=== PATIENT | male | born 1995 | race Caucasian/White ===

== ENCOUNTER 2016-09-15 17:18 | Emergency (ER) | payer OTHER ==
[~2016-09-15] VITALS: Ht 172.7 cm; Wt 78.2 kg
[~2016-09-15 17:18] MED LIST: ATOM25CA PO; AZIT-57 PO; MIRT15TA PO; MIRT15TA2 PO
[2016-09-15 17:20] VITALS: TEMP 37.1; Ht 172.7 cm; Wt 78.2 kg
[2016-09-15] MEDS ORDERED: DOXYCYCLINE HYCLATE 100 MG CAP PO ONE (17:45)
--- NOTE | 2016-09-15 18:20 | EMERGENCY ROOM VISIT NOTE ---
ED Visit Note First contact with patient: 17:22 CHIEF COMPLAINT: Tick bite HISTORY OF PRESENT ILLNESS: This 21-year-old male patient presents to the emergency department accompanied by his girlfriend complaining of a tick bite to the left breast. The patient believes that the tick has been in place for greater than 2 days. They have not attempted to remove the tick at home. They complain of 1/10 pain in the area of the tick bite. The patient denies any redness, swelling or drainage from the area. They deny any rashes, fevers or joint pain. REVIEW OF SYSTEMS: A review of systems was performed with positives and pertinent negatives listed in the history of present illness. All other systems were reviewed and are negative. ALLERGIES: Penicillins MEDICATIONS: No chronic medications PMH: No significant past medical history. SOCIAL HISTORY: The patient lives locally with family. Nonsmoker. PHYSICAL EXAM: VITALS: Vitals are noted on the nurse's note and reviewed by myself. Vital signs stable. GENERAL: This is a 21-year-old male, in no acute distress, nondiaphoretic, well- developed well-nourished. SKIN: There is a tick embedded in the left breast just inferior to the nipple. There is no surrounding erythema or swelling. There are no rashes. EMERGENCY DEPARTMENT COURSE: The patient was seen and examined as above. Using a tick twister, the tick was easily removed. Lyme prophylaxis was indicated and the patient was given a one-time dose of 200 mg doxycycline. Conservative care measures were discussed with the patient. The patient was discharged home in good condition. DIAGNOSIS: Tick bite Problem List Medical Problems: (1) Bronchitis Status: Resolved Surgical Problems: (1) No significant past surgical history Status: Chronic Current/Historical Medications No Active Prescriptions or Reported Meds Allergies Coded Allergies: Amoxicillin (Verified Allergy, Intermediate, HIVES, 09/15/16) Penicillins (Verified Adverse Reaction, Unknown, GI SYMPTOMS, 09/15/16) Vital Signs Date Time Temp Pulse Resp B/P Pulse Ox O2 Delivery O2 Flow Rate FiO2 09/15/16 17:20 37.1 71 18 132/71 100 Room Air Medications Administered Medications (Trade) Dose Ordered Sig/Cyndee Route Start Time Stop Time Status Last Admin Dose Admin Doxycycline Hyclate (Vibramycin Cap) 200 mg ONE ONCE PO 09/15/16 17:45 09/15/16 17:46 DC 09/15/16 17:55 200 MG Departure Information Impression Primary Impression: Tick bite Dispostion Home / Self-Care Condition GOOD Prescriptions No Active Prescriptions or Reported Meds Referrals Lashae Moreira M.D. (PCP) Patient Instructions My [facility] Additional Instructions Follow-up with your primary care provider as needed. Proper wound care is essential for adequate wound healing and infection prevention. You can shower and clean the wound with soap and water. Do not scour over the wound, pat dry with a towel. Do not submerse the wound (i.e. bathe or dish wash) until the wound has fully healed. You can use an antibiotic ointment with a dressing over the wound for the next 3-4 days. After this time you may leave the wound dry and open to the air. Return to the emergency department with any fevers, rashes, joint aches or any other new/concerning symptoms. Problem Qualifiers Primary Impression: Tick bite Encounter type: initial encounter Qualified Codes: W57.XXXA - Bitten or stung by nonvenomous insect and other nonvenomous arthropods, initial encounter
[2016-09-15 18:39] VITALS: BP 129/73; PULSE 82; O2SAT 100
== END 2016-09-15 18:40 | disposition home or self-care (01) ==
LOC: C.EDB 17:20 → C.EDD 18:40
DX: S20.162A Insect bite (nonvenomous) of breast, left breast, initial encounter (principal); W57.XXXA Bitten or stung by nonvenomous insect and other nonvenomous arthropods, initial encounter; Z88.0 Allergy status to penicillin; Z88.1 Allergy status to other antibiotic agents

== ENCOUNTER 2017-03-30 22:52 | Emergency (ER) | payer OTHER ==
[~2017-03-30] VITALS: Ht 175.3 cm; Wt 73.0 kg
[2017-03-30 23:00] VITALS: TEMP 37; Ht 175.3 cm; Wt 73.0 kg
[2017-03-30] MEDS ORDERED: SODIUM CHLORIDE 0.9% 1000ML 1,000 ML IV STA (23:08)
[2017-03-30] MEDS ORDERED: KETOROLAC TROMETHAMINE 30 MG/ML VIAL IV STA (23:08)
[2017-03-30 23:12] VITALS: O2SAT 97
[2017-03-30 23:16] LABS: BASO % 0.2 %; BASO ABS # 0.02 K/uL (0-0.2); COMPLETE YES; EOS % 1.5 %; HEMATOCRIT 41.4 % (42-52); IG% 0.2 %; LYMPH % 30.7 %; LYMPH ABS # 2.93 K/uL (1.2-3.4); MEAN CELL VOLUME 91.6 fL (80-100); MEAN CORPUSCULAR HEMOGLOBIN 31.9 pg (25-34); MEAN CORPUSCULAR HGB CONC 34.8 g/dl (32-36); MEAN PLATELET VOLUME 10.2 fL (7.4-10.4); MONO % 10.9 %; NEUT % 56.5 %; PLATELET COUNT 218 K/uL (130-400); RED BLOOD COUNT 4.52 M/uL (4.7-6.1); WHITE BLOOD COUNT 9.55 K/uL (4.8-10.8)
[2017-03-30 23:34] LABS: ALT/SGPT 18 U/L (12-78); AST/SGOT 15 U/L (15-37); BLOOD UREA NITROGEN 5 mg/dl (7-18); BUN/CREATININE RATIO 5.7 (10-20); CALCIUM 8.5 mg/dl (8.5-10.1); CARBON DIOXIDE 21 mmol/L (21-32); CHLORIDE 110 mmol/L (98-107); CREATININE 0.81 mg/dl (0.60-1.40); GLUCOSE 110 mg/dl (70-99); POTASSIUM 2.8 mmol/L (3.5-5.1); SODIUM 145 mmol/L (136-145)
[2017-03-30] MEDS ORDERED: POTASSIUM CHLORIDE 10 MEQ TABCR PO STA (23:36)
[2017-03-30 23:38] LABS: POINT OF CARE TROPONIN I < 0.030 ng/ml (0-0.045)
[2017-03-30 23:39] LABS: ALKALINE PHOSPHATASE 109 U/L (45-117)
[2017-03-30 23:43] LABS: MAGNESIUM 1.9 mg/dl (1.8-2.4)
[2017-03-31] MEDS ORDERED: POTASSIUM CHLORIDE 10 MEQ TABCR PO STA (01:41)
[2017-03-31 01:55] VITALS: BP 128/70; PULSE 78; O2SAT 98
--- NOTE | 2017-03-31 06:09 | EMERGENCY ROOM VISIT NOTE ---
History First contact with patient: 22:55 Chief Complaint: CHEST PAIN Stated Complaint: Chest pain/Shortness of breath Nursing Triage Summary: patient states around 1900 he developed chest pain to center of chest described as pressure and states pain remained until around 2229 when EMS gave patient aspirin. patient states pain has completely resolved . hx of anxiety . History of Present Illness The patient is a 21 year old male who presents to the Emergency Room with complaints of chest pain since 7 PM while getting a tattoo. Pain currently pain -free. He was given aspirin by EMS. Patient states he is quite anxious over the tattoo. Patient describes the pain as aching, ranging in severity was 4-10 but now has resolved. Patient denies dyspnea, fever, chills, cough, congestion , injury to the area, leg pain or swelling, recent travel, family history of heart disease or blood clots. He does not smoke. Patient did admit to having a few alcoholic beverages tonight. Review of Systems See HPI for pertinent positives & negatives. A total of 10 systems reviewed and were otherwise negative. Past Medical/Surgical History Medical Problems: (1) Bronchitis Surgical Problems: (1) No significant past surgical history Family History No pertinent family history Social History Smoking Status: Never Smoker Alcohol Use: none Drug Use: none Marital Status: single Housing Status: lives with family Occupation Status: employed Current/Historical Medications No Active Prescriptions or Reported Meds Physical Exam Vital Signs Date Time Temp Pulse Resp B/P (MAP) Pulse Ox O2 Delivery O2 Flow Rate FiO2 03/31/17 01:55 78 20 128/70 98 03/31/17 01:35 78 20 110/61 98 Room Air 03/31/17 00:32 91 20 104/46 99 Room Air 03/30/17 23:12 97 Room Air 03/30/17 23:12 97 Room Air 03/30/17 23:00 97 Room Air 03/30/17 23:00 37.0 117 20 155/ 97 Room Air 03/30/17 22:57 114 Physical Exam VITALS: Vitals are noted on the nurse's note and reviewed by myself. Vital signs stable. GENERAL: Pleasant male, in no acute distress, nondiaphoretic, well-developed well-nourished. SKIN: The skin was without rashes, erythema, edema, or bruising. There is no tenting of the skin. Capillary reflex less than 2 seconds. HEAD: Normocephalic atraumatic. EARS: External auditory canals clear, tympanic membranes pearly swartz without erythema or effusion bilaterally. EYES: Pupils equal round and reactive to light and accommodation. Conjunctivae without injection, sclerae without icterus. Extraocular movements intact. NOSE: Patent, turbinates without inflammation or discharge. MOUTH: Mucous membranes moist. Pharynx without erythema or exudate. Uvula midline. Airway patent. Tongue does not deviate. NECK: Supple without nuchal rigidity. No lymphadenopathy. No thyromegaly. Cervical spine is nontender. No JVD. HEART: Regular rate and rhythm without murmurs gallops or rubs. Midsternal chest slightly tender to palpation easily reproducing symptoms LUNGS: Clear to auscultation bilaterally without wheezes, rales or rhonchi. No dullness to percussion. No retractions or accessory muscle use. ABDOMEN: Positive bowel sounds x 4. Normal tympanic percussion. Soft, nontender, without masses or organomegaly. Raymond sign negative. No guarding or rebound tenderness. MUSCULOSKELETAL: No muscle atrophy, erythema, or edema noted. NEURO: Patient was alert and oriented to person place and time. Normal sensation to light and sharp touch. No focal neurological deficits. Medical Decision & Procedures Laboratory Results 03/30/17 23:04 Red Blood Count 4.52, Mean Corpuscular Volume 91.6, Mean Corpuscular Hemoglobin 31.9, Mean Corpuscular Hemoglobin Concent 34.8, Mean Platelet Volume 10.2, Neutrophils (%) (Auto) 56.5, Lymphocytes (%) (Auto) 30.7, Monocytes (%) (Auto) 10.9, Eosinophils (%) (Auto) 1.5, Basophils (%) (Auto) 0.2, Neutrophils # (Auto ) 5.40, Lymphocytes # (Auto) 2.93, Monocytes # (Auto) 1.04, Eosinophils # (Auto ) 0.14, Basophils # (Auto) 0.02 03/30/17 23:04 Test 03/30/17 23:04 03/30/17 23:19 03/30/17 23:51 03/31/17 00:50 White Blood Count 9.55 K/uL (4.8-10.8) Red Blood Count 4.52 M/uL (4.7-6.1) Hemoglobin 14.4 g/dL (14.0-18.0) Hematocrit 41.4 % (42-52) Mean Corpuscular Volume 91.6 fL (80-100) Mean Corpuscular Hemoglobin 31.9 pg (25-34) Mean Corpuscular Hemoglobin Concent 34.8 g/dl (32-36) Platelet Count 218 K/uL (130-400) Mean Platelet Volume 10.2 fL (7.4-10.4) Neutrophils (%) (Auto) 56.5 % Lymphocytes (%) (Auto) 30.7 % Monocytes (%) (Auto) 10.9 % Eosinophils (%) (Auto) 1.5 % Basophils (%) (Auto) 0.2 % Neutrophils # (Auto) 5.40 K/uL (1.4-6.5) Lymphocytes # (Auto) 2.93 K/uL (1.2-3.4) Monocytes # (Auto) 1.04 K/uL (0.11-0.59) Eosinophils # (Auto) 0.14 K/uL (0-0.5) Basophils # (Auto) 0.02 K/uL (0-0.2) RDW Standard Deviation 42.1 fL (36.4-46.3) RDW Coefficient of Variation 12.5 % (11.5-14.5) Immature Granulocyte % (Auto) 0.2 % Immature Granulocyte # (Auto) 0.02 K/uL (0.00-0.02) Anion Gap 14.0 mmol/L (3-11) Est Creatinine Clear Calc Drug Dose 141.9 ml/min Estimated GFR () 145.2 Estimated GFR (Non- 125.3 BUN/Creatinine Ratio 5.7 (10-20) Calcium Level 8.5 mg/dl (8.5-10.1) Magnesium Level 1.9 mg/dl (1.8-2.4) Total Bilirubin 0.3 mg/dl (0.2-1) Direct Bilirubin < 0.1 mg/dl (0-0.2) Aspartate Amino Transf (AST/SGOT) 15 U/L (15-37) Alanine Aminotransferase (ALT/SGPT) 18 U/L (12-78) Alkaline Phosphatase 109 U/L (45-117) Troponin I < 0.015 ng/ml (0-0.045) Total Protein 7.6 gm/dl (6.4-8.2) Albumin 3.8 gm/dl (3.4-5.0) Lipase 175 U/L (73-393) Bedside D-Dimer 208 ng/mlFEU (0-450) Ethyl Alcohol mg/dL 123.0 mg/dl (0-3) Bedside Troponin I < 0.030 ng/ml (0-0.045) Medications Administered Medications (Trade) Dose Ordered Sig/Cyndee Route Start Time Stop Time Status Last Admin Dose Admin Sodium Chloride 1,000 ml @ 999 mls/hr Q1H1M STAT IV 03/30/17 23:08 03/31/17 00:08 DC 03/30/17 23:24 999 MLS/HR Ketorolac Tromethamine (Toradol Inj) 30 mg NOW STAT IV 03/30/17 23:08 03/30/17 23:10 DC 03/30/17 23:24 30 MG Potassium Chloride (Klor-Con M10) 40 meq NOW STAT PO 03/30/17 23:36 03/30/17 23:37 DC 03/30/17 23:43 40 MEQ Potassium Chloride (Klor-Con M10) 40 meq NOW STAT PO 03/31/17 01:41 03/31/17 01:42 DC 03/31/17 01:50 40 MEQ ED Course Prior records/ancillary studies reviewed. Triage Nursing notes reviewed. Additional history obtained from family. The patient's history was concerning for chest pain. Differential diagnosis: Etiologies such as cardiac ischemia, aortic dissection, pulmonary embolism, pneumonia, pneumothorax, musculoskeletal, infections, pericarditis, myocarditis , esophageal rupture, gastrointestinal, as well as others were entertained. Physical examination: As above. ER treatment provided: Toradol, potassium, IV fluids On reassessment the patient felt better. Diagnostic interpretation by me: The electrocardiogram was negative for pathologic change. Normal sinus, normal intervals, no acute ST-T wave changes, impression sinus tachycardia interpreted by myself. Repeat EKG was normal sinus rhythm. The labs revealed negative troponin 2, negative d-dimer, hypokalemia and this is replaced orally. Elevated alcohol Imaging studies: Chest x-ray with no acute consolidation, pneumothorax or free air per my interpretation Exam and history seem consistent with noncardiac chest pain. Patient felt much better to be medicated as above. I believe his anion gap from the alcohol. Patient was advised follow-up family care in a few days or here in the ER sooner for chest pain, difficulty breathing, worsening signs or symptoms or as needed. Patient had a negative d-dimer. Normal EKG. Negative troponin 2 days 2 hours apart. By the evaluation outlined above emergent etiologies such as cardiac ischemia, aortic dissection, pulmonary embolism, pneumonia, pneumothorax, infections, pericarditis, myocarditis, gastrointestinal, as well as others were deemed relatively unlikely. The pt informed about the findings as listed above. All questions were answered and pleased with the treatment. Return instructions were outlined and the patient was discharged in stable condition. Case reviewed with my attending Referral: The patient was referred back to primary care physician for follow-up in 2 to 3 days for a recheck of the current condition. Medical Decision As above Medication Reconcilliation Current Medication List: was personally reviewed by me Blood Pressure Screening Patient's blood pressure: Normal blood pressure Impression Primary Impression: Hypokalemia Additional Impression: Chest wall pain Departure Information Dispostion Home / Self-Care Condition GOOD Prescriptions No Active Prescriptions or Reported Meds Referrals Lashae Moreira M.D. (PCP) Forms HOME CARE DOCUMENTATION FORM, IMPORTANT VISIT INFORMATION Patient Instructions Chest Pain - [facility], Hypokalemia Ms, My [facility] Additional Instructions Take potassium tomorrow at lunch that was given to you in the ER. Ibuprofen(Motrin, Advil) may be used for fever or pain. Use 600mg every six hours as needed. Take with food. Avoid using more than 2400mg in a 24 hour period. Do not use 2400mg per day for more than three consecutive days without physician direction. Prolonged inappropriate use can lead to stomach upset or ulcers. (AND/OR) Acetaminophen(Tylenol) may be used for fever or pain. Use 1000mg every six hours as needed. Avoid using more than 3000mg in a 24 hour period. Rest and drink plenty of fluids as tolerated. Continue current medications. Avoid strenuous activities and anything that worsens your pain. Resume normal activities once your symptoms resolve. Return to the ER immediately for worsening or persistent chest pain, abdominal pain, vomiting, fevers, chest pains, difficulty breathing, worsening of your condition, or as needed. Follow up with your primary physician in 2-3 days for a recheck of your current condition. Problem Qualifiers
--- NOTE | 2017-03-31 07:52 | DIAGNOSTIC IMAGING REPORT ---
CHEST ONE VIEW PORTABLE HISTORY: Atypical CHEST PAIN COMPARISON: Chest 07/21/2015. FINDINGS: The lungs are clear. Cardiac silhouette is normal in size. No pleural effusions. No pneumothorax. IMPRESSION: No acute process. Electronically signed by: Surjit Elkins M.D. 03/31/2017 7:51 AM Dictated Date/Time: 03/31/2017 7:50 AM
== END 2017-03-31 01:55 | disposition home or self-care (01) ==
LOC: EDBD 22:52 → C.EDB 22:53
DX: E87.6 Hypokalemia (principal); R07.89 Other chest pain

== ENCOUNTER 2017-04-16 23:48 | Emergency (ER) | payer OTHER ==
[~2017-04-16] VITALS: Ht 170.2 cm; Wt 75.5 kg
[2017-04-16 23:53] VITALS: BP 130/78; TEMP 36.8; O2SAT 96; Ht 170.2 cm; Wt 75.5 kg
[2017-04-16 23:55] VITALS: PULSE 109
[2017-04-16 23:56] VITALS: O2SAT 96
[2017-04-17] MEDS ORDERED: VNTHFA/IN INH (01:54)
== END 2017-04-17 00:06 | disposition left against medical advice (07) ==
LOC: EDBD 23:48 → C.EDC 23:49
DX: R06.02 Shortness of breath (principal)

== ENCOUNTER 2017-04-17 00:55 | Emergency (ER) | payer OTHER ==
[~2017-04-17] VITALS: Ht 170.2 cm; Wt 74.4 kg
[2017-04-17 00:59] VITALS: BP 135/79; TEMP 36.1; O2SAT 97; Ht 170.2 cm; Wt 74.4 kg
[2017-04-17 01:02] VITALS: PULSE 114
[2017-04-17] MEDS ORDERED: KETOROLAC TROMETHAMINE 30 MG/ML VIAL IV STA (01:02)
[2017-04-17] MEDS ORDERED: ALBUT/IPRATROP 3MG/0.5MG NEB 3 ML VIAL INH STA (01:02)
[2017-04-17 01:37] VITALS: O2SAT 97
[2017-04-17 01:47] LABS: BASO % 0.3 %; BASO ABS # 0.02 K/uL (0-0.2); COMPLETE YES; EOS % 0.9 %; HEMATOCRIT 44.1 % (42-52); IG% 0.4 %; LYMPH % 33.6 %; LYMPH ABS # 2.56 K/uL (1.2-3.4); MEAN CORPUSCULAR HEMOGLOBIN 32.2 pg (25-34); MEAN CORPUSCULAR HGB CONC 34.2 g/dl (32-36); MEAN PLATELET VOLUME 10.4 fL (7.4-10.4); MONO % 9.3 %; NEUT % 55.5 %; PLATELET COUNT 234 K/uL (130-400); RED BLOOD COUNT 4.69 M/uL (4.7-6.1); WHITE BLOOD COUNT 7.63 K/uL (4.8-10.8)
[2017-04-17] MEDS ORDERED: VNTHFA/IN INH (01:54)
[2017-04-17 02:14] LABS: ALKALINE PHOSPHATASE 84 U/L (45-117); ALT/SGPT 29 U/L (12-78); BLOOD UREA NITROGEN 4 mg/dl (7-18); BUN/CREATININE RATIO 6.5 (10-20); CALCIUM 6.2 mg/dl (8.5-10.1); CARBON DIOXIDE 20 mmol/L (21-32); CHLORIDE 119 mmol/L (98-107); CREATININE 0.56 mg/dl (0.60-1.40); GLUCOSE 69 mg/dl (70-99); SODIUM 148 mmol/L (136-145)
--- NOTE | 2017-04-17 04:32 | EMERGENCY ROOM VISIT NOTE ---
History First contact with patient: 00:59 Chief Complaint: SHORTNESS OF BREATH Stated Complaint: SHORT OF BREATH Nursing Triage Summary: sob with left sided chest arm and bilateral leg pain. History of Present Illness The patient is a 21 year old male who presents to the Emergency Room with complaints of Chest pain, dyspnea, cough and left arm pain for the past day. Patient was just here 1 hour ago and ran out of the ER. He then returned by EMS for further evaluation and treatment for the second time within 2 hours. Patient describes the pain as aching, ranging in severity 9 out of 10 to the left side of his chest that occasionally radiates down his arm. They makes it better or worse. His mother had heart disease in her 50s. He does smoke. Denies alcohol or drug use. Patient also states he short of breath and is coughing. No recent travel. Patient denies fever, chills, abdominal pain, leg swelling, prior blood clots or heart disease. Once again the patient adamantly denies drug use. Review of Systems See HPI for pertinent positives & negatives. A total of 10 systems reviewed and were otherwise negative. Past Medical/Surgical History Medical Problems: (1) Bronchitis Surgical Problems: (1) No significant past surgical history Family History No pertinent family history Social History Smoking Status: Never Smoker Alcohol Use: none Drug Use: none Marital Status: in relationship Housing Status: lives with family Occupation Status: employed Current/Historical Medications Scheduled Albuterol Hfa (Ventolin Hfa), 2 PUFFS INH QID Physical Exam Vital Signs Date Time Temp Pulse Resp B/P (MAP) Pulse Ox O2 Delivery O2 Flow Rate FiO2 04/17/17 01:37 97 Room Air 04/17/17 01:37 97 Room Air 04/17/17 01:02 114 04/17/17 00:59 97 Room Air 04/17/17 00:59 36.1 17 18 135/79 97 Room Air Physical Exam VITALS: Vitals are noted on the nurse's note and reviewed by myself. Vital signs tachycardic mildly GENERAL: White male yelling at staff demanding pain meds, in no acute distress, nondiaphoretic, well-developed well-nourished. SKIN: The skin was without rashes, erythema, edema, or bruising. There is no tenting of the skin. Capillary reflex less than 2 seconds. HEAD: Normocephalic atraumatic. EARS: External auditory canals clear, tympanic membranes pearly swartz without erythema or effusion bilaterally. EYES: Pupils equal round and reactive to light and accommodation. Conjunctivae without injection, sclerae without icterus. Extraocular movements intact. NOSE: Patent, turbinates without inflammation or discharge. MOUTH: Mucous membranes moist. Pharynx without erythema or exudate. Uvula midline. Airway patent. Tongue does not deviate. NECK: Supple without nuchal rigidity. No lymphadenopathy. No thyromegaly. Cervical spine is nontender. No JVD. HEART: Mildly tachycardic rate and rhythm without murmurs gallops or rubs. Chest nontender to palpation LUNGS: Clear to auscultation bilaterally without wheezes, rales or rhonchi. No dullness to percussion. No retractions or accessory muscle use. ABDOMEN: Positive bowel sounds x 4. Normal tympanic percussion. Soft, nontender, without masses or organomegaly. Raymond sign negative. No guarding or rebound tenderness. MUSCULOSKELETAL: No muscle atrophy, erythema, or edema noted. NEURO: Patient was alert and oriented to person place and time. Normal sensation to light and sharp touch. No focal neurological deficits. Medical Decision & Procedures Laboratory Results 04/17/17 01:30 Red Blood Count 4.69, Mean Corpuscular Volume 94.0, Mean Corpuscular Hemoglobin 32.2, Mean Corpuscular Hemoglobin Concent 34.2, Mean Platelet Volume 10.4, Neutrophils (%) (Auto) 55.5, Lymphocytes (%) (Auto) 33.6, Monocytes (%) (Auto) 9.3, Eosinophils (%) (Auto) 0.9, Basophils (%) (Auto) 0.3, Neutrophils # (Auto) 4.24, Lymphocytes # (Auto) 2.56, Monocytes # (Auto) 0.71, Eosinophils # (Auto) 0.07, Basophils # (Auto) 0.02 04/17/17 01:30 Test 04/17/17 01:30 White Blood Count 7.63 K/uL (4.8-10.8) Red Blood Count 4.69 M/uL (4.7-6.1) Hemoglobin 15.1 g/dL (14.0-18.0) Hematocrit 44.1 % (42-52) Mean Corpuscular Volume 94.0 fL (80-100) Mean Corpuscular Hemoglobin 32.2 pg (25-34) Mean Corpuscular Hemoglobin Concent 34.2 g/dl (32-36) Platelet Count 234 K/uL (130-400) Mean Platelet Volume 10.4 fL (7.4-10.4) Neutrophils (%) (Auto) 55.5 % Lymphocytes (%) (Auto) 33.6 % Monocytes (%) (Auto) 9.3 % Eosinophils (%) (Auto) 0.9 % Basophils (%) (Auto) 0.3 % Neutrophils # (Auto) 4.24 K/uL (1.4-6.5) Lymphocytes # (Auto) 2.56 K/uL (1.2-3.4) Monocytes # (Auto) 0.71 K/uL (0.11-0.59) Eosinophils # (Auto) 0.07 K/uL (0-0.5) Basophils # (Auto) 0.02 K/uL (0-0.2) RDW Standard Deviation 43.8 fL (36.4-46.3) RDW Coefficient of Variation 12.7 % (11.5-14.5) Immature Granulocyte % (Auto) 0.4 % Immature Granulocyte # (Auto) 0.03 K/uL (0.00-0.02) Anion Gap 9.0 mmol/L (3-11) Est Creatinine Clear Calc Drug Dose 191.9 ml/min Estimated GFR () > 150.0 Estimated GFR (Non- 145.8 BUN/Creatinine Ratio 6.5 (10-20) Calcium Level 6.2 mg/dl (8.5-10.1) Total Bilirubin 0.2 mg/dl (0.2-1) Direct Bilirubin mg/dl (0-0.2) Aspartate Amino Transf (AST/SGOT) U/L (15-37) Alanine Aminotransferase (ALT/SGPT) 29 U/L (12-78) Alkaline Phosphatase 84 U/L (45-117) Total Protein 5.8 gm/dl (6.4-8.2) Albumin 2.9 gm/dl (3.4-5.0) Lipase 142 U/L (73-393) Medications Administered Medications (Trade) Dose Ordered Sig/Cyndee Route Start Time Stop Time Status Last Admin Dose Admin Albuterol/ Ipratropium (Duoneb) 3 ml NOW STAT INH 04/17/17 01:02 04/17/17 01:05 DC 04/17/17 01:29 3 ML Ketorolac Tromethamine (Toradol Inj) 30 mg NOW STAT IV 04/17/17 01:02 04/17/17 01:05 DC 04/17/17 01:29 30 MG ED Course Prior records/ancillary studies reviewed. Triage Nursing notes reviewed. Additional history obtained from girlfriend The patient's history was concerning for chest pain. Differential diagnosis: Etiologies such as cardiac ischemia, aortic dissection, pulmonary embolism, pneumonia, pneumothorax, musculoskeletal, infections, pericarditis, myocarditis , esophageal rupture, gastrointestinal, as well as others were entertained. Physical examination: As above. ER treatment provided: Toradol On reassessment the patient felt better. Diagnostic interpretation by me: The electrocardiogram was normal sinus, normal intervals, no acute ST-T wave changes, rate of 112. Impression sinus tachycardia interpreted by myself The labs revealed negative troponin. Stable H&H. Hypoglycemia. Hypocalcemia Patient started to yell and scream at staff demanding narcotics. He was yelling at the nurse and I came in. He started yelling at me and using profanity. He demanded more pain meds despite the fact he disc on Toradol 10 minutes ago. I informed him and takes time for the medicine to work. He then became extremely upset and ripped off all his leads and demanded to leave. He was informed that he is at risk for heart attack, blood clot, or infection. He refused the chest x-ray. He refused to stay for his results. The IV was pulled by the nurse and patient ran out of the ER for the second time within the past hour. He then stopped at triage and demanded a albuterol inhaler. I did call this in into the pharmacy for him. My attending was made aware of this. Patient was extremely upset and made it abundantly clear he was dissatisfied with not receiving more pain meds. Patient was advised he can return to the ER at anytime for further evaluation and workup and was advised follow-up family care tomorrow. He used profanity at me and stormed out. The pt informed about the findings as listed above. Patient was advised to follow-up family care tomorrow. Case reviewed with my attending. Medical Decision As above Medication Reconcilliation Current Medication List: was personally reviewed by me Blood Pressure Screening Patient's blood pressure: Normal blood pressure Impression Primary Impression: Atypical chest pain Departure Information Dispostion Against Medical Advice Condition GOOD Prescriptions Albuterol Hfa (VENTOLIN HFA) 200 Puffs/36937 Mcg Aers 2 PUFFS INH QID for 5 Days, #1 INHALER Prov: Ermelinda Ruiz ., SANTI 04/17/17 Referrals Lashae Moreira M.D. (PCP) Forms HOME CARE DOCUMENTATION FORM, IMPORTANT VISIT INFORMATION Patient Instructions My [facility]
== END 2017-04-17 01:50 | disposition left against medical advice (07) ==
LOC: EDBD 00:55 → C.EDB 00:56
DX: R07.89 Other chest pain (principal); Z82.49 Family history of ischemic heart disease and other diseases of the circulatory system; F17.210 Nicotine dependence, cigarettes, uncomplicated

== ENCOUNTER 2017-10-18 04:34 | Emergency (ER) | payer OTHER ==
[~2017-10-18] VITALS: Ht 172.7 cm; Wt 77.5 kg
[2017-10-18 04:40] VITALS: TEMP 36.7; Ht 172.7 cm; Wt 77.5 kg
[2017-10-18] MEDS ORDERED: ACETAMINOPHEN 500 MG TAB PO STA (04:58)
[2017-10-18] MEDS ORDERED: IBUPROFEN 600 MG TAB PO STA (04:58)
[2017-10-18] MEDS ORDERED: NORCO 5/325MG HOME PACK PO ONE (05:45)
[2017-10-18 05:55] VITALS: BP 127/70; PULSE 82; O2SAT 97
--- NOTE | 2017-10-18 06:49 | EMERGENCY ROOM VISIT NOTE ---
History First contact with patient: 04:51 Chief Complaint: KNEEPAIN Stated Complaint: FELL AT WORK L KNEE PAIN History of Present Illness The patient is a 22 year old male who presents to the Emergency Room with complaints of left knee and left shoulder pain after falling at work about 2 hours ago. The patient states that he was walking, when he slipped, fell sideways, and struck his shoulder against the wall, fell, and his knee against the floor. The patient was able to ambulate following the injury. He went home , took a few aspirin, and became concerned because his pain persisted. He does not have a history of fracture to the shoulder or knee in the past. No numbness or paresthesias. The patient did not strike his head or lose consciousness. He does not have neck pain, chest pain, chest tightness, shortness of breath, abdominal, or pelvic pain. He rates his overall discomfort a 5/10. He has not had difficulty using the bathroom since the injury. Review of Systems More than 10 systems were reviewed and otherwise negative with the exception of history of present illness. Past Medical/Surgical History Medical Problems: (1) Bronchitis Surgical Problems: (1) No significant past surgical history Family History No pertinent family history Social History Smoking Status: Never Smoker Alcohol Use: none Drug Use: none Marital Status: in relationship Housing Status: lives with family Occupation Status: employed Physical Exam Vital Signs Date Time Temp Pulse Resp B/P (MAP) Pulse Ox O2 Delivery O2 Flow Rate FiO2 10/18/17 05:55 82 16 127/70 97 10/18/17 04:40 36.7 87 17 129/77 98 Room Air Physical Exam VITALS: Vitals are noted on the nurse's note and reviewed by myself. Vital signs stable. GENERAL: Well-developed, well-nourished, white male, who is in no acute distress and resting comfortably. Patient is cooperative with the examination. HEAD: Normocephalic atraumatic. NECK: Supple without nuchal rigidity. No lymphadenopathy. No thyromegaly. Cervical spine is nontender. HEART: Regular rate and rhythm without murmurs gallops or rubs. LUNGS: Clear to auscultation bilaterally without wheezes, rales or rhonchi. No retractions or accessory muscle use. ABDOMEN: Positive normal bowel sounds x 4. Soft, nontender, without masses or organomegaly. No guarding or rebound tenderness. MUSCULOSKELETAL: No muscle atrophy, erythema, or edema noted. No significant tenderness of the left shoulder left scapula. The patient is with full sensation and range of motion through the left shoulder. Negative empty can. No clavicular tenderness. There is positive tenderness just to the inferior aspect of the left patella. There is mild edema but no ecchymosis. Negative anterior/posterior drawer. No laxity with varus and valgus maneuvers. NEURO: Patient was alert and oriented to person place and time. CN II through XII grossly intact. No focal neurological deficits. Deep tendon reflexes 2+ throughout. Medical Decision & Procedures Medications Administered Medications (Trade) Dose Ordered Sig/Cyndee Route Start Time Stop Time Status Last Admin Dose Admin Acetaminophen (Tylenol Tab) 1,000 mg NOW STAT PO 10/18/17 04:58 10/18/17 04:59 DC 10/18/17 05:07 1,000 MG Ibuprofen (Motrin Tab) 600 mg NOW STAT PO 10/18/17 04:58 10/18/17 04:59 DC 10/18/17 05:08 600 MG Acetaminophen/ Hydrocodone Bitart ([place] 5/325mg Home Pack) 1 homepack UD ONCE PO 10/18/17 05:45 10/18/17 05:46 DC 10/18/17 05:53 1 HOMEPACK ED Course Physical exam and history were performed. Nursing notes, EMR, and Medication List were personally reviewed. Patient appears to have suffered a fall with injury to his left knee and left shoulder. Patient was given ibuprofen and Tylenol here in the department. X- rays were obtained and reviewed by myself and my attending without showing obvious fracture dislocation. The patient was offered a knee brace and crutches , however he prefers an Jonatan wrap, and this was provided. The patient was given instructions to follow with [employer] for further care management. He may continue [id number] analgesics, although I did give him a home pack of Vicodin for pain control. The patient was otherwise invited back to the ER with any new, worsening, or concerning symptoms. The chart was completed utilizing [employer] Voice Recognition Software. Grammatical errors, random word insertions, pronoun errors, and incomplete sentences are an occasional consequence of this system due to software limitations, ambient noise, and hardware issues. Any formal questions or concerns about the content, text, or information contained within the body of this dictation should be directly addressed to the provider for clarification. . Medical Decision Differential diagnosis includes, but is not limited to: Sprain, strain, fracture , dislocation, subluxation, contusion, and others Impression Primary Impression: Injury of left knee Additional Impression: Injury of left shoulder Departure Information Dispostion Home / Self-Care Condition GOOD Forms HOME CARE DOCUMENTATION FORM, IMPORTANT VISIT INFORMATION Patient Instructions My [facility], ED [facility] Additional Instructions You were seen and evaluated today on an emergency basis only. This is not a substitute for, or an effort to provide, complete comprehensive medical care. It is not possible to recognize and treat all injuries or illnesses in a single emergency department visit. For this reason it is recommended that you followup with your Work[employer]'s [employer]eg[employer] specialist for ongoing care and evaluation For baseline pain relief you may alternate ibuprofen and acetaminophen every 4 hours for pain control. Take 600 mg ibuprofen (Advil) and then 4 hours later take 1000 mg acetaminophen (Tylenol). Do not take more than 3000 mg acetaminophen in a single day. [place] (hydrocodone/acetaminophen) 5/325 mg(homepack) ONE tablet every 6 hours as needed for worsening breakthrough pain. Do not drink or drive on [place]. This medication will likely make you tired. Do not take [place] and Tylenol at the same time as both contain acetaminophen. [place] may cause constipation. You may wish to take an [id number] stool softener like Colace if this occurs. You are welcome to return to the emergency department anytime with new, worsening, or concerning symptoms. Problem Qualifiers
--- NOTE | 2017-10-18 07:17 | DIAGNOSTIC IMAGING REPORT ---
LEFT KNEE 3 VIEWS CLINICAL HISTORY: Left knee injury. FINDINGS: AP, crosstable lateral, and sunrise views of the left knee are obtained. No prior studies are available for comparison at the time of dictation. The skeletal structures are well mineralized. No fracture is seen. The joint spaces of the knee are preserved. There is a joint effusion. Prepatellar soft tissue edema is noted. IMPRESSION: Soft tissue swelling and joint effusion. No fracture is identified. Electronically signed by: Bryan Shaikh M.D. 10/18/2017 7:16 AM Dictated Date/Time: 10/18/2017 7:15 AM
--- NOTE | 2017-10-18 07:17 | DIAGNOSTIC IMAGING REPORT ---
LEFT SHOULDER 3 VIEWS CLINICAL HISTORY: Left shoulder injury. FINDINGS: 3 views of the left shoulder are obtained. No prior studies are available for comparison at the time of dictation. The skeletal structures are well mineralized. No fracture or dislocation is seen. The glenohumeral and acromioclavicular joints are preserved. The overlying soft tissues are within normal limits. The imaged left upper lobe lung parenchyma appears clear. IMPRESSION: Unremarkable radiographic assessment of the left shoulder. Electronically signed by: Bryan Shaikh M.D. 10/18/2017 7:15 AM Dictated Date/Time: 10/18/2017 7:15 AM
== END 2017-10-18 05:55 | disposition home or self-care (01) ==
LOC: C.EDB 04:36
DX: S49.92XA Unspecified injury of left shoulder and upper arm, initial encounter (principal); S89.92XA Unspecified injury of left lower leg, initial encounter; R60.0 Localized edema; W01.198A Fall on same level from slipping, tripping and stumbling with subsequent striking against other object, initial encounter; Y93.01 Activity, walking, marching and hiking; Y99.0 Civilian activity done for income or pay